=== PATIENT | female | born 1995 | race Caucasian/White ===

== ENCOUNTER 2019-06-14 06:23 | Inpatient (IN) | payer OTHER ==
[~2019-06-14] VITALS: Ht 154.9 cm; Wt 63.5 kg
[~2019-06-14 06:23] MED LIST: CEFUROXIME250 MG PO
[2019-06-14] MEDS ORDERED: PRENATAL CAPLE1 EAC1 PO (07:47)
== END 2019-06-16 15:38 | DRG 807 ==
LOC: OB/GYN 06:23 → LDR 06:23 → OB/GYN 13:25
PROVIDERS: ADMIT Specialist
PROC: 10E0XZZ Delivery of Products of Conception, External Approach (ICD-10-PCS; principal; 2019-06-14)
PROC: 4A1HXCZ Monitoring of Products of Conception, Cardiac Rate, External Approach (ICD-10-PCS; 2019-06-14)
PROC: 4A033R1 Measurement of Arterial Saturation, Peripheral, Percutaneous Approach (ICD-10-PCS; 2019-06-14)
DX: O80 Encounter for full-term uncomplicated delivery (principal); Z37.0 Single live birth; Z3A.40 40 weeks gestation of pregnancy